=== PATIENT | male | born 1955 | race Hispanic/Latino ===

== ENCOUNTER 2017-08-03 09:06 | Emergency (ER) | payer MEDICARE ==
[2017-08-03 09:07] VITALS: BMI 39.7
[2017-08-03] MEDS ORDERED: Amoxicillin-Clav 875-125 mg Tab PO STA (09:51)
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
[2017-08-03 11:07] LABS: BASO # 0.05 K/mm3 (0.0-2.0); BASO % 0.6 % (0.0-3.0); EOS # 0.2 (0.0-0.7); EOS % 1.9 % (1.5-5.0); GRAN # 4.85 (1.4-6.5); GRAN % 56.3 % (50.0-68.0); HEMOGLOBIN 15.9 g/dL (14.0-18.0); LYMPH # 2.9 (1.2-3.4); LYMPH % 33.4 % (22.0-35.0); MEAN CELL VOLUME 87.8 fl (80.0-105.0); MEAN CORPUSCULAR HEMOGLOBIN 30.8 pg (25.0-35.0); MEAN CORPUSCULAR HGB CONC 35.1 g/dl (31.0-37.0); MEAN PLATELET VOLUME 9.8 fl (7.0-11.0); MONO # 0.7 (0.1-0.6); MONO % 7.8 % (1.0-6.0); RBC 5.16 10^6/uL (3.5-6.1); RED CELL DISTRIBUTION WIDTH 13.1 % (11.5-14.5); WHITE BLOOD COUNT 8.6 10^3/ul (4.5-11.0)
[2017-08-03 11:11] LABS: ALB/GLOB RATIO 1.4 (1.1-1.8); ALBUMIN 4.4 g/dL (3.0-4.8); ALT/SGPT 61 U/L (7-56); AST/SGOT 32 U/L (17-59); BLOOD UREA NITROGEN 14 mg/dL (7-21); CALCIUM 9.2 mg/dL (8.4-10.5); GFR AFRICAN-AMERICAN > 60; GFR NON-AFRICAN AMERICAN > 60
[2017-08-03] MEDS ORDERED: Iohexol 350 MG/100 ML VIAL ONE (11:29)
--- NOTE | 2017-08-03 12:16 | RAD ---
HISTORY: medical clearance COMPARISON: No prior. TECHNIQUE: Chest PA and lateral FINDINGS: LUNGS: No active pulmonary disease. PLEURA: No significant pleural effusion identified. No pneumothorax apparent. CARDIOVASCULAR: Normal. OSSEOUS STRUCTURES: No significant abnormalities. VISUALIZED UPPER ABDOMEN: Normal. OTHER FINDINGS: None. IMPRESSION: No active disease.
[2017-08-03 12:34] VITALS: RESP 18
--- NOTE | 2017-08-03 12:48 | CT ---
PROCEDURE: CT NECK WITH CONTRAST HISTORY: lt. sided neck/throat pain with swelling sensation COMPARISON: None TECHNIQUE: CT of the neck with intravenous contrast. Coronal and sagittal reformats generated. Intravenous contrast dose: 100 cc of Omni 350 Radiation dose: DLP 601 mGy-cm This CT exam was performed using one or more of the following dose reduction techniques: Automated exposure control, adjustment of the mA and/or kV according to patient size, and/or use of iterative reconstruction technique. FINDINGS: NASOPHARYNX: Unremarkable. SUPRAHYOID NECK: There is asymmetry of the tonsils with swelling on the right side. There is no evidence of tonsillar abscess. Finding is seen on image 24 series 2 INFRAHYOID NECK: There is soft tissue swelling in the left supraglottic space. This can be seen on image 46 series 2. This could represent acute inflammation. A neoplastic lesion cannot be excluded. MASS: None. GLANDS: Parotid and submandibular glands unremarkable. Normal size thyroid gland, without nodule. LYMPH NODES: There is a 2.3 cm cervical lymph node on the right adjacent to the submandibular gland CERVICAL SPINE: No fracture or focal lesion. VASCULAR STRUCTURES: Unremarkable. OTHER FINDINGS: None. IMPRESSION: Right-sided swelling of the palatine tonsil. No evidence of tonsillar abscess. Left-sided swelling in the supraglottic larynx. No evidence of epiglottitis. Enlarged cervical lymph node on the right measuring 2.3 cm
[2017-08-03] MEDS ORDERED: cefTRIAXone 1 gm 1 GM/100 ML BAG IVPB STA (12:59)
[2017-08-03 14:29] VITALS: BP 141/81; PULSE 72; TEMP 98.9; O2SAT 98
== END 2017-08-03 14:28 | disposition home or self-care (01) ==
LOC: ED 09:06
DX: J03.90 Acute tonsillitis, unspecified (principal); R93.8 Abnormal findings on diagnostic imaging of other specified body structures; I10 Essential (primary) hypertension; E11.9 Type 2 diabetes mellitus without complications
CPT/HCPCS: 70491; 71046; 80053; 85025; 96365; 96375; 99284; J0696; J1100; J1885; Q9967

== ENCOUNTER 2018-05-13 09:02 | Outpatient (CLI) | payer MEDICARE | END 2018-05-13 09:03 | disposition home or self-care (01) | LOC: LAB 09:02 ==

== ENCOUNTER 2018-05-31 09:11 | Emergency (ER) | payer MEDICARE ==
[2018-05-31 09:23] VITALS: BMI 37.3
[2018-05-31 09:24] VITALS: TEMP 98.3
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
[2018-05-31] MEDS ORDERED: Sodium Chloride 0.9% 500 ML IV STA (09:52)
[2018-05-31 10:26] LABS: BASO # 0.03 K/mm3 (0.0-2.0); BASO % 0.3 % (0.0-3.0); EOS # 0.1 (0.0-0.7); EOS % 1.4 % (1.5-5.0); HEMOGLOBIN 14.6 g/dL (14.0-18.0); MEAN CELL VOLUME 88.5 fl (80.0-105.0); MEAN CORPUSCULAR HEMOGLOBIN 29.9 pg (25.0-35.0); MEAN CORPUSCULAR HGB CONC 33.7 g/dl (31.0-37.0); MEAN PLATELET VOLUME 9.7 fl (7.0-11.0); MONO # 0.7 (0.1-0.6); MONO % 7.5 % (1.0-6.0); RBC 4.89 10^6/uL (3.5-6.1); RED CELL DISTRIBUTION WIDTH 13.6 % (11.5-14.5); WHITE BLOOD COUNT 9.8 10^3/uL (4.5-11.0)
[2018-05-31 10:35] LABS: INR 1.1; PARTIAL THROMBOPLASTIN TIME 30.1 Seconds (26.9-38.3); PROTHROMBIN TIME 12.4 SECONDS (9.4-12.5)
[2018-05-31 10:37] LABS: ALB/GLOB RATIO 1.2 (1.1-1.8); ALT/SGPT 32 U/L (7-56); AMYLASE 55 U/L (35-125); AST/SGOT 22 U/L (17-59); BLOOD UREA NITROGEN 13 mg/dL (7-21); CALCIUM 8.9 mg/dL (8.4-10.5); GFR NON-AFRICAN AMERICAN > 60; LIPASE 76 U/L (23-300)
[2018-05-31 10:48] LABS: TROPONIN I < 0.01 ng/mL
--- NOTE | 2018-05-31 11:02 | RAD ---
Date of service: 05/31/2018 HISTORY: abd pain COMPARISON: 08/03/2017 TECHNIQUE: 1 view obtained. FINDINGS: LUNGS: No active pulmonary disease. PLEURA: No significant pleural effusion identified, no pneumothorax apparent. CARDIOVASCULAR: No aortic atherosclerotic calcification present. Normal cardiac size. No pulmonary vascular congestion. OSSEOUS STRUCTURES: No significant abnormalities. VISUALIZED UPPER ABDOMEN: Normal. OTHER FINDINGS: None. IMPRESSION: No active disease.
--- NOTE | 2018-05-31 12:08 | CT ---
Date of service: 05/31/2018 PROCEDURE: CT Abdomen and Pelvis with contrast HISTORY: LLQ abd tenderness, vomiting COMPARISON: None. TECHNIQUE: Contrast dose: 150 mL Omnipaque 350 Radiation dose: Total exam DLP = 1243.79 mGy-cm. This CT exam was performed using one or more of the following dose reduction techniques: Automated exposure control, adjustment of the mA and/or kV according to patient size, and/or use of iterative reconstruction technique. FINDINGS: LOWER THORAX: No visible consolidation, pleural effusion, or pneumothorax. Partially imaged cardiomegaly. LIVER: Hepatomegaly. Hypoattenuation of the liver compatible with hepatic steatosis. GALLBLADDER AND BILE DUCTS: Cholecystectomy. PANCREAS: Unremarkable. SPLEEN: Unremarkable. ADRENALS: Unremarkable. KIDNEYS AND URETERS: 4 mm proximal right ureteral calculus (series 3, image 117) with mild proximal hydroureteronephrosis. Numerous additional tiny right renal calculi are evident. No obstructing calculus identified on the left. Small bilateral renal cysts. VASCULATURE: No aortic aneurysm. Atherosclerotic calcifications of the aorta. BOWEL: Stomach is nondistended. Lack of oral contrast limits evaluation for bowel pathology. Bowel loops appear within normal limits of caliber without evidence of obstruction. Diverticulosis without CT evidence of acute diverticulitis. APPENDIX: The appendix appears within normal limits of caliber. No secondary signs of acute appendicitis. PERITONEUM: No significant free fluid. No definite free air. LYMPH NODES: No bulky adenopathy identified. BLADDER: Unremarkable. REPRODUCTIVE: Prostate gland measures approximately 4.7 x 5.2 cm. BONES: Degenerative changes. OTHER FINDINGS: Small fat containing umbilical hernia. Small fat containing left inguinal hernia. IMPRESSION: 4 mm proximal right ureteral calculus with mild proximal hydroureteronephrosis. Numerous additional tiny right renal calculi are evident. Small bilateral renal cysts. Enlarged prostate gland. Recommend correlation PSA. Diverticulosis without CT evidence of acute diverticulitis. Hypoattenuation of the liver compatible with hepatic steatosis. Hepatomegaly. Cholecystectomy.
[2018-05-31] MEDS ORDERED: Tmp-Smz 800 mg-160 mg DS Tab PO STA (12:51)
[2018-05-31 13:38] LABS: URINE BILIRUBIN NEGATIVE (NEGATIVE); URINE BLOOD LARGE (NEGATIVE); URINE GLUCOSE (UA) NEGATIVE (NEGATIVE); URINE LEUKOCYTE ESTERASE NEGATIVE Leu/uL (NEGATIVE); URINE PROTEIN TRACE mg/dL (<30 mg/dL); URINE UROBILINOGEN 0.2 E.U./dL (<1 E.U./dL)
[2018-05-31 13:42] LABS: URINE APPEARANCE SL CLOUDY (CLEAR); URINE COLOR YELLOW (YELLOW)
--- NOTE | 2018-05-31 14:00 | CARD ---
APPROVED REPORT Date of service: 05/31/2018 EKG Measurement Heart [id number] <Conclusion> Normal sinus rhythm with sinus arrhythmia Normal ECG
[2018-05-31 14:12] LABS: URINE RBC 20 - 25 /hpf (0-2); URINE WBC 0 - 2 /hpf (0-6)
[2018-05-31 14:13] LABS: URINE AMORPHOUS SEDIMENT FEW /hpf; URINE BACTERIA MANY /hpf
[2018-05-31 14:16] VITALS: BP 140/71; PULSE 70; RESP 16; O2SAT 99
--- NOTE | 2018-06-01 07:49 | CARD ---
APPROVED REPORT Date of service: 05/31/2018 EKG Measurement Heart [id number] <Conclusion> Atrial flutterwith 2:1 conduction Abnormal ECG
== END 2018-05-31 14:15 | disposition home or self-care (01) ==
LOC: ED 09:11
DX: N13.2 Hydronephrosis with renal and ureteral calculous obstruction (principal); I10 Essential (primary) hypertension; E11.9 Type 2 diabetes mellitus without complications; Z90.49 Acquired absence of other specified parts of digestive tract
CPT/HCPCS: 71045; 74177; 80053; 81001; 82150; 82550; 83615; 83690; 84484; 85025; 85610; 85730; 87086; 93005; 96361; 96374; 96375; 96376; 99283; J1885; J2405; J7040; Q9967